=== PATIENT | female | born 1945 | race Caucasian/White ===

== ENCOUNTER 2021-11-04 14:03 | Day surgery (SDC) | payer MEDICARE, SELFPAY ==
[2021-11-04 14:03] VITALS: BMI 31.4
[2021-11-04 14:16] VITALS: BP 148/73; PULSE 103; RESP 18; TEMP 36.9; O2SAT 99
[2021-11-04] MEDS: sodium chloride 0.9% 1,000 ML 30 ML IV (14:31)
--- NOTE | 2021-11-04 14:43 | PM.OPSURHP ---
Providers/Chief Complaint Chief Complaint: inability to swallow r13.10/no cpt code per [place] History of Present Illness Winnie Cole is a 76 year old female who was diagnosed with Covid about 4 weeks ago and subsequently had persistent delirium/secondary to Covid and or stroke. Information obtained from patient's chart and from Dr. Madrigal at [facility]. Patient is unresponsive. No prior abdominal surgeries patient received 80 mg of Lovenox earlier today. Patient has been made comfort care and needs a PEG tube placed for discharge home. There is no surgical coverage available at [facility] and therefore patient was transferred here for placement of a PEG tube Review of Systems General: Reports: ROS unobtainable due to mental status Medications/Allergies Home Medications Medication Instructions Recorded Confirmed Last Taken Type Unable to Assess 11/04/21 11/04/21 Unknown History Allergies Allergy/AdvReac Type Severity Reaction Status Date / Time bee venom protein (honey bee) Allergy Unknown Verified 11/04/21 14:10 Penicillins Allergy Unknown Verified 11/04/21 14:10 PFSH PFSH: Medical History (Updated 11/04/21 @ 15:28 by Demar Colon MD) COVID-19 Surgical History S/P percutaneous endoscopic gastrostomy (PEG) tube placement Vital Signs Vitals Signs: Last Vital Signs Temp 98.5 F 11/04/21 14:16 Pulse 103 H 11/04/21 14:16 Resp 18 11/04/21 14:16 BP 148/73 11/04/21 14:16 Pulse Ox 99 11/04/21 14:16 Weight: Weight last 48 hrs Weight 195 lb Physical Exam Narrative: EXAM NARRATIVE: HEENT: Normocephalic Eye: Sclera /conjunctiva normal Abdomen: Soft to palpation, nontender, nondistended Neurological: Arousable Skin: Intact, no lesions appreciated on gross exam A&P Assessment and plan (1) Dysphagia: 76-year-old female who was recently diagnosed with COVID-19 and subsequently had developed delirium and was noted to be unresponsive and therefore had minimal oral intake. Patient has been made comfort care and needs enteral access for nutritional support. Plan for PEG tube placement under MAC Procedure, risks, benefits and alternatives have been discussed with the patient's family who wishes to proceed with surgery. Status: Acute Coding Level of Care Code Acute Ore Dressing Engineer for Chg Fwd Diagnoses Dysphagia R13.10
--- NOTE | 2021-11-04 14:54 | PC.NURSE ---
4mL of lidocaine used by Dr. Colon for PEG tube placement.
--- NOTE | 2021-11-04 14:56 | ANES.PREANE2 ---
Pre-Anesthetic Assessment Pre-Anesthetic Assessment: Height/Weight: Height 1.68 m Weight 88.451 kg Temp Pulse Resp BP Pulse Ox 98.5 F 103 H 18 148/73 99 11/04/21 14:16 11/04/21 14:16 11/04/21 14:16 11/04/21 14:16 11/04/21 14:16 Proposed Procedure: Operation Date: 11/04/21 13:00 Proposed Procedures p PEG Tube Insertion /inability to swallow R13.10(Not Applicable) - Demar Colon MD Was Beta Jim taken within 24 hours: N/A Was Clonidine taken within 24 hours: N/A Social: Social History: No alcohol and No tobacco (h/o smoking) Exam: Pre-Anes Outpt Exam: alert, oriented x 3 and clear to auscultation bilaterally Additional Exam Findings (including area of procedure): Slightly tachy and regular Airway: Submandibular: WNL Cervical ROM: WNL MP: 2 Dentition: False Pulmonary: Pulmonary: COPD CV/HEM: CV/HEM: HTN Metabolic: Metabolic: Morbid obesity Neuropsych: Comments: Patient is nonverbal, some purposeful movement to painful stimuli Anesthetic Plan: ASA status: 4 Anesthesia: MAC Risk of > 500 ml blood loss (7ml/kg in children): No Meds/Allergies Current Medications: Current Medications Generic Name Dose Route Start Last Admin Trade Name Freq PRN Reason Stop Dose Admin Sodium Chloride 1,000 mls @ 30 ml s/hr 11/04/21 14:30 11/04/21 14:31 Sodium Chloride 0.9% IV 11/05/21 14:29 30 mls/hr .[id number] MARLEN Administration Data Anesthesia Cardiac Studies: No Data to Display
[2021-11-04] MEDS: vancomycin 1,000 MG in sodium chloride 0.9% 250 ML 250 MG IV (15:03)
[2021-11-04 15:05] VITALS: BP 99/56; PULSE 88; RESP 18; TEMP 37.3; O2SAT 100
--- NOTE | 2021-11-04 15:29 | PM.OP ---
Operative Report Date of procedure: November 04, 2021 Pre-op Diagnosis: Altered mental status with inability for oral intake Post-op diagnosis: same Post-op Diagnosis: Normal EGD Procedure Done: Percutaneous endoscopic placement of 20 Czech [place] [employer] gastrostomy tube Esophagogastroduodenoscopy without biopsy Pathology: none sent Surgeon: Demar Colon Anesthesia: MAC Condition: stable Disposition: PACU Procedure: The patient was taken to the Operating Room and was placed under monitored anesthesia care after antibiotic had been administered. A bite block was placed and Olympus gastroscope was introduced and advanced up to the stomach and the first portion of the duodenum. There were no abnormalities noted in the esophagus, stomach and duodenum. The site for the planned PEG was confirmed in the left upper quadrant with transillumination using gastroscope noted through the abdominal wall and indentation of the abdominal wall noted on the gastroscope. This site was marked, and total of 5 milliliters of 1% lidocaine was infiltrated. An 11-blade was used to make a stab incision. An introducer needle was passed through the abdominal wall into the gastric lumen and the needle removed and the needle removed and the sheath left behind. A guidewire was passed through the introducer needle into the gastric lumen and grasped with a snare attached to the gastroscope. The gastroscope was withdrawn along with the guidewire, which was attached to the 20-Czech Endo[employer] PEG tube. The guidewire was then pulled through the abdominal wall along with the PEG through the mouth into the gastric lumen until the inner disc was noted to stand against the gastric wall. The gastroscope was reintroduced to confirm good position. The outer disc was then attached and the two way valve was fixed to the PEG tube. The outer disc was noted to be at 4 centimeters at the skin level. Sterile dressing and abdominal binder was placed. The patient was stable throughout the procedure.
[2021-11-04 15:33] VITALS: BP 164/73; PULSE 102; RESP 20; O2SAT 100
--- NOTE | 2021-11-04 16:09 | ANE.PACU2 ---
Inpatient post-anesthesia follow up: Airway intact: Yes Vital signs: Temperature 99.1 F Pulse Rate 102 Respiratory Rate 20 Blood Pressure 164/73 Pulse Oximetry 100 Oxygen Delivery Me thod Simple Mask Oxygen Flow Rate 8 Fraction of Inspir ed Oxygen Hydration adequate: Yes Nausea and vomiting: No Pain level: 1 Mental status: Baseline
== END 2021-11-04 15:40 | disposition home or self-care (01) ==
PROVIDERS: Visit Provider Surgery
PROC: 0DH63UZ Insertion of Feeding Device into Stomach, Percutaneous Approach (ICD-10-PCS; CPT 43246; principal; 2021-11-04 13:00)
PROC: 0DJ08ZZ Inspection of Upper Intestinal Tract, Via Natural or Artificial Opening Endoscopic (ICD-10-PCS; CPT 43235; 2021-11-04 13:00)
DX: R13.10 Dysphagia, unspecified (principal); Z86.16 Personal history of COVID-19; R41.82 Altered mental status, unspecified; Z87.891 Personal history of nicotine dependence; J44.9 Chronic obstructive pulmonary disease, unspecified; I10 Essential (primary) hypertension; E66.01 Morbid (severe) obesity due to excess calories; Z68.31 Body mass index [BMI] 31.0-31.9, adult
CPT/HCPCS: 43235; 43246; 96365; J2704; J3370; J7030; J7050